=== PATIENT | female | born 1985 | race Caucasian/White ===

== ENCOUNTER 2017-02-27 11:19 | Emergency (ER) | payer BC, MEDICAID, OTHER ==
[~2017-02-27] VITALS: Ht 162.6 cm; Wt 70.6 kg
[2017-02-27 11:33] VITALS: BP 135/88; PULSE 107; RESP 18; TEMP 98.1; O2SAT 100
[2017-02-27] MEDS ORDERED: AMOX500C PO (12:08)
[2017-02-27] MEDS ORDERED: PRED20 PO (12:10)
--- NOTE | 2017-02-27 12:11 | PD ---
HPI Chief Complaint: Cold / Flu Symptoms Time Seen by Provider: 12:10 Travel History International Travel<30 days: No Contact w/Intl Traveler<30days: No Traveled to known affect area: No History of Present Illness HPI 31-year-old female presents to the emergency department for evaluation of postnasal drip, ear pressure, sore throat, cough. Patient states that 3 weeks ago her daughter developed cold symptoms and then passed them to her. States that she initially had ear pressure and pain, sore throat and nasal congestion. States that she started taking amoxicillin that she had at home 500 mg twice daily and her ear pain resolved. States that since then she's had persistent postnasal drip, mild nonproductive cough, chest tightness. Denies any fever, chills, nausea, vomiting, chest pain, shortness of breath, abdominal pain. Denies any medical conditions. States that she has seasonal allergies. Denies any history of lung disease, denies any history of smoking. Denies any recent travel. Denies , last menstrual period 1 week ago. No other complaints. PFSH Past Medical History Medical History: Denies Significant Hx Diminished Hearing: No Immunizations Current: Yes Tetanus Vaccination: > 5 Years Influenza Vaccination: No ?: Not LMP: 02-16-17 : 1 Para: 1 Past Surgical History Other Surgery: Yes (BREAST AUG) Social History Alcohol Use: Yes (RARE) Tobacco Use: No Substance Use: No Allergies-Medications (Allergen,Severity, Reaction): Coded Allergies: No Known Allergies (Verified , 02/27/17) Reported Meds & Prescriptions Reported Meds & Active Scripts Active Prednisone 20 Mg Tab 20 Mg PO BID 5 Days Reported Amoxicillin 500 Mg Cap 500 Mg PO BID Review of Systems Except as stated in HPI: all other systems reviewed are Neg Physical Exam Narrative GENERAL: Well-nourished and well-developed pleasant patient in no acute distress who is nontoxic appearing. SKIN: Warm and dry. HEAD: Normocephalic and atraumatic. No tenderness to palpation of frontal or maxillary sinuses. EYES: No injection, drainage, or hyphema noted. PERRLA. EOMI. ENT: Mild erythema and irritation of bilateral nasal mucosa. No nasal drainage noted. Oropharynx is clear. Tympanic membranes bilaterally with clear serous effusion but no erythema, loss of landmarks, bulging. NECK: Supple and the trachea is midline. No lymphadenopathy is noted throughout the cervical chains. CARDIOVASCULAR: Regular rate and rhythm. RESPIRATORY: Breath sounds are equal bilaterally with no accessory muscle use, wheezing, rhonchi, or crackles. MUSCULOSKELETAL: No obvious deformities, swelling, cyanosis, or ecchymosis is present throughout the upper and lower extremities. Patient has full range of motion without any signs of neurovascular compromise. NEUROLOGICAL: Awake, alert, and oriented. Normal speech and gait. Cranial nerves are grossly intact. Data Data Last Documented VS Vital Signs Date Time Temp Pulse Resp B/P Pulse Ox O2 Delivery O2 Flow Rate FiO2 02/27/17 11:33 98.1 107 18 135/88 100 MDM Medical Decision Making Medical Screen Exam Complete: Yes Emergency Medical Condition: Yes Differential Diagnosis URI versus bronchitis versus seasonal allergies versus rhinitis Narrative Course 31-year-old female presents to the emergency department for evaluation of cough and cold symptoms for 3 weeks. Patient is afebrile, vital signs are stable. Physical examination reveals that she has some irritation to the nasal mucosa, postnasal drip and tympanic membrane effusions bilaterally without infection. She's been taking amoxicillin 500 mg twice daily for the last 5 days and has 2 days left of this medication. I suspect that she has seasonal allergies and may also have a component of a viral upper respiratory infection. I discussed supportive care with the patient. We'll give her a short course of steroids for symptom management. She is advised follow-up with her PCP. Patient verbalizes understanding and agreement with treatment plan. Diagnosis Primary Impression: URI (upper respiratory infection) Qualified Code: J06.9 - Viral upper respiratory tract infection Additional Impression: Seasonal allergies Qualified Code: J30.2 - Seasonal allergic rhinitis, unspecified allergic rhinitis trigger Referrals: Primary Care Physician Patient Instructions: General Instructions Additional Instructions: Take Claritin daily. Use nasal saline rinse. Take medication as prescribed with food and a full glass of water. Follow-up with your Primary Care Physician. Return to the ED for any acute worsening of symptoms. Med/Other Pt SpecificInfo: Prescription(s) given Scripts Prednisone 20 Mg Tab20 Mg PO BID 5 Days Ref 0 Prov:Lawrence Dickson MD 02/27/17 Disposition: 01 DISCHARGE HOME Condition: Stable Tete Ma February 27, 2017 12:11
== END 2017-02-27 12:15 | disposition home or self-care (01) ==
LOC: PHED 11:19 → PHEFT 12:15
DX: J39.8 Other specified diseases of upper respiratory tract (principal); J30.2 Other seasonal allergic rhinitis
CPT/HCPCS: 99283

== ENCOUNTER 2017-05-09 09:25 | Emergency (ER) | payer BC, MEDICAID ==
[~2017-05-09] VITALS: Ht 162.6 cm; Wt 72.7 kg
[~2017-05-09 09:25] MED LIST: AMOX500C PO; PRED20 PO
[2017-05-09 09:27] VITALS: BP 121/90; PULSE 121; RESP 16; TEMP 98.2; O2SAT 99
[2017-05-09] MEDS ORDERED: MONT4CHW4 CHEW (09:39)
--- NOTE | 2017-05-09 09:56 | PD ---
HPI Chief Complaint: Cardiac Complaint Time Seen by Provider: 09:40 Travel History International Travel<30 days: No Contact w/Intl Traveler<30days: No Traveled to known affect area: No History of Present Illness HPI Patient is a 31-year-old female presents emergency department with cough congestion and palpitations. Patient states that she was here a few months ago and was diagnosed with URI and had some mild palpitations at that time. She states that she has followed up with primary care physician but palpitations persist. She also states that her chest just been feeling tight on the right side without radiation. Also some mild shortness of breath. Denies any nausea vomiting. This symptoms been going on for the past few months and a mitten but seemed to be gradually worsening. Patient denies any history of hormonal contraception use, denies any long stasis periods, denies any history of blood clots denies any history of cancer. PFSH Past Medical History Medical History: Denies Significant Hx Diminished Hearing: No Immunizations Current: Yes Tetanus Vaccination: > 5 Years Influenza Vaccination: No ?: Not LMP: 04/14/17 : 1 Para: 1 Past Surgical History Other Surgery: Yes (Breast aug. ) Social History Alcohol Use: Yes (Occ.) Tobacco Use: No Substance Use: No Allergies-Medications (Allergen,Severity, Reaction): Coded Allergies: No Known Allergies (Verified , 05/09/17) Reported Meds & Prescriptions Reported Meds & Active Scripts Active Propranolol (Propranolol HCl) 10 Mg Tab 10 Mg PO Q12HR PRN Reported Montelukast (Montelukast Sodium) 4 Mg Chew 4 Mg CHEW HS Review of Systems Except as stated in HPI: all other systems reviewed are Neg Physical Exam Narrative GENERAL: Well-developed well-nourished, mildly anxious but in no obvious distress. SKIN: Focused skin assessment warm/dry. HEAD: Atraumatic. Normocephalic. EYES: Pupils equal and round. No scleral icterus. No injection or drainage. ENT: No nasal bleeding or discharge. Mucous membranes pink and moist. TMs clear bilaterally, oropharynx clear and moist. NECK: Trachea midline. No JVD. CARDIOVASCULAR: Regular rhythm with tachycardia. No murmur appreciated. 2+ bilateral equal pulses in all 4 extremities. RESPIRATORY: No accessory muscle use. Clear to auscultation. Breath sounds equal bilaterally. GASTROINTESTINAL: Abdomen soft, non-tender, nondistended. Hepatic and splenic margins not palpable. MUSCULOSKELETAL: No obvious deformities. No clubbing. No cyanosis. No edema. NEUROLOGICAL: Awake and alert. No obvious cranial nerve deficits. Motor grossly within normal limits. Normal speech. PSYCHIATRIC: Appropriate mood and affect; insight and judgment normal. Data Data Last Documented VS Vital Signs Date Time Temp Pulse Resp B/P Pulse Ox O2 Delivery O2 Flow Rate FiO2 05/09/17 11:45 75 05/09/17 11:10 18 138/70 98 Room Air 05/09/17 09:27 98.2 Orders Ckmb (Isoenzyme) Profile (05/09/17 09:48) Complete Blood Count With Diff (05/09/17 09:48) Comprehensive Metabolic Panel (05/09/17 09:48) D-Dimer (05/09/17 09:48) Magnesium (Mg) (05/09/17 09:48) Prothrombin Time / Inr (Pt) (05/09/17 09:48) Act Partial Throm Time (Ptt) (05/09/17 09:48) Troponin I (05/09/17 09:48) Ecg Monitoring (05/09/17 09:48) Iv Access Insert/Monitor (05/09/17 09:48) Oximetry (05/09/17 09:48) Oxygen Administration (05/09/17 09:48) Sodium Chloride 0.9% Flush (Ns Flush) (05/09/17 10:00) Thyroid Stimulating Hormone (05/09/17 09:48) Free T3 (05/09/17 09:48) Free Thyroxine (T4) (05/09/17 09:48) Sodium Chlor 0.9% 1000 Ml Inj (Ns 1000 M (05/09/17 10:00) Propranolol (Inderal) (05/09/17 11:30) Chest, Single Ap (05/09/17 ) Electrocardiogram (05/09/17 09:38) Labs Laboratory Tests Test 05/09/17 09:50 White Blood Count 5.8 TH/MM3 Red Blood Count 4.81 MIL/MM3 Hemoglobin 14.4 GM/DL Hematocrit 42.8 % Mean Corpuscular Volume 89.0 FL Mean Corpuscular Hemoglobin 29.9 PG Mean Corpuscular Hemoglobin 33.6 % Concent Red Cell Distribution Width 12.7 % Platelet Count 235 TH/MM3 Mean Platelet Volume 8.3 FL Neutrophils (%) (Auto) 36.6 % Lymphocytes (%) (Auto) 49.3 % Monocytes (%) (Auto) 12.4 % Eosinophils (%) (Auto) 0.8 % Basophils (%) (Auto) 0.9 % Neutrophils # (Auto) 2.1 TH/MM3 Lymphocytes # (Auto) 2.9 TH/MM3 Monocytes # (Auto) 0.7 TH/MM3 Eosinophils # (Auto) 0.0 TH/MM3 Basophils # (Auto) 0.1 TH/MM3 CBC Comment DIFF FINAL Differential Comment Prothrombin Time 10.7 SEC Prothromb Time International 1.0 RATIO Ratio Activated Partial 26.0 SEC Thromboplast Time D-Dimer Quantitative (PE/DVT) 0.37 MG/L FEU Sodium Level 141 MEQ/L Potassium Level 3.5 MEQ/L Chloride Level 108 MEQ/L Carbon Dioxide Level 25.2 MEQ/L Anion Gap 8 MEQ/L Blood Urea Nitrogen 16 MG/DL Creatinine 0.85 MG/DL Estimat Glomerular Filtration 78 ML/MIN Rate Random Glucose 96 MG/DL Calcium Level 9.1 MG/DL Magnesium Level 2.0 MG/DL Total Bilirubin 0.6 MG/DL Aspartate Amino Transf 15 U/L (AST/SGOT) Alanine Aminotransferase 17 U/L (ALT/SGPT) Alkaline Phosphatase 79 U/L Total Creatine Kinase 50 U/L Troponin I LESS THAN 0.02 NG/ML Total Protein 7.7 GM/DL Albumin 3.8 GM/DL Free Thyroxine 1.08 NG/DL Free Triiodothyronine (T3) 3.26 PG/ML pg/dL Thyroid Stimulating Hormone 1.620 uIU/ML [address] [place] [address] Medical Decision Making Medical Screen Exam Complete: Yes Emergency Medical Condition: Yes Interpretation(s) EKG shows sinus tachycardia without any acute ST segment changes. Intervals otherwise within normal limits. Normal axis and normal R-wave progression. This normal EKG except for rate. Differential Diagnosis Palpitations, anxiety, electro-light abnormality, thyroid abnormality, PE seems unlikely, URI. Narrative Course Patient roomed in the emergency department, her PE risk seems low by wells and PERC criteria and a d-dimer is obtained and is negative. Chest x-ray negative, initial EKG negative, troponin negative, electrolytes within normal limits and TSH normal. Patient was given a dose of Inderal her heart rate slowed from 1 teens down to 70s, she states her palpitations had resolved. Unclear etiology I did recommend follow-up with a group home manager she was made for referral. Discussed use of Inderal as needed and return to ED criteria. Low risk for acute coronary syndrome she is stable for discharge. Diagnosis Primary Impression: Palpitations Referrals: Narayan Ureña DO Med/Other Pt SpecificInfo: Prescription(s) given Scripts Propranolol 10 Mg Tab10 Mg PO Q12HR PRN (palpitations) #30 TAB Ref 0 Prov:Tay Hitchcock MD 05/09/17 Disposition: 01 DISCHARGE HOME Condition: Stable Tay Hitchcock MD May 09, 2017 09:56
[2017-05-09 10:00] VITALS: O2SAT 99
[2017-05-09] MEDS ORDERED: SODIUM CHLOR 0.9% 1000 ML INJ 1,000 ML IV ONE (10:00)
[2017-05-09] MEDS ORDERED: SODIUM CHLORIDE 0.9% FLUSH 10 ML FLUSH IVF PRN (10:00)
[2017-05-09 10:04] LABS: AUTOMATED NEUTROPHIL # 2.1 TH/MM3 (1.8-7.7); BASOPHIL # 0.1 TH/MM3 (0-0.2); BASOPHIL % 0.9 % (0.0-2.0); EOSINOPHIL % 0.8 % (0.0-4.0); HEMATOCRIT 42.8 % (35.0-46.0); HEMO FLAGS DIFF FINAL; LYMPH % 49.3 % (9.0-44.0); LYMPHOCYTE # 2.9 TH/MM3 (1.0-4.8); MEAN CORPUSCULAR HEMOGLOBIN 29.9 PG (27.0-34.0); MEAN CORPUSCULAR HGB CONC 33.6 % (32.0-36.0); MONO % 12.4 % (0.0-8.0); NEUT % 36.6 % (16.0-70.0); PLATELET COUNT 235 TH/MM3 (150-450); RED BLOOD COUNT 4.81 MIL/MM3 (4.00-5.30); RED CELL DISTRIBUTION WIDTH 12.7 % (11.6-17.2); WHITE BLOOD COUNT 5.8 TH/MM3 (4.0-11.0)
[2017-05-09 10:13] LABS: CHLORIDE 108 MEQ/L (98-107); POTASSIUM 3.5 MEQ/L (3.5-5.1); SODIUM (NA) 141 MEQ/L (136-145)
[2017-05-09 10:16] LABS: ANION GAP 8 MEQ/L (5-15); BICARBONATE 25.2 MEQ/L (21.0-32.0)
[2017-05-09 10:17] LABS: BLOOD UREA NITROGEN 16 MG/DL (7-18)
[2017-05-09 10:19] LABS: ALT (GPT) 17 U/L (10-53); AST (GOT) 15 U/L (15-37)
[2017-05-09 10:20] LABS: GLOMERULAR FILTRATION RATE 78 ML/MIN (>89)
[2017-05-09 10:21] LABS: TOTAL BILIRUBIN ADULT 0.6 MG/DL (0.2-1.0)
[2017-05-09 10:22] LABS: ALKALINE PHOSPHATASE 79 U/L (45-117)
[2017-05-09 10:25] LABS: PROTHROMBIN TIME - PATIENT 10.7 SEC (9.8-11.6)
[2017-05-09 10:41] LABS: CREATINE KINASE 50 U/L (26-192)
[2017-05-09 11:10] VITALS: BP 138/70; PULSE 110; RESP 18; O2SAT 98
[2017-05-09] MEDS ORDERED: PROPRANOLOL HCL 10 MG TAB PO ONE (11:30)
[2017-05-09 11:35] LABS: FREE T3 3.26 PG/ML (2.18-3.98); FREE T4 1.08 NG/DL (0.76-1.46)
[2017-05-09] MEDS ORDERED: PROP10TA6 PO (11:39)
[2017-05-09 11:45] VITALS: PULSE 75
--- NOTE | 2017-05-09 12:39 | RADRPT ---
EXAM DATE/TIME: 05/09/2017 12:04 [facility] COMPARISON: No previous studies available for comparison. INDICATIONS : Chest tightness and short of breath MEDICAL HISTORY : None. SURGICAL HISTORY : Breast augmentation ENCOUNTER: Initial ACUITY: 3 days PAIN SCORE: 0/10 LOCATION: Bilateral chest FINDINGS: The lungs are clear without infiltrate, nodule, or mass. There is no appreciable pleural effusion fo r technique. Heart and mediastinum are unremarkable. CONCLUSION: No acute cardiopulmonary disease. Christiano Underwood MD on May 09, 2017 at 12:38 Board Certified Radiologist. This report was verified electronically.
--- NOTE | 2017-05-10 10:41 | EKG ---
Date Performed: 05/09/2017 Time Performed: 09:38:50 PTAGE: 31 years EKG: SINUS TACHYCARDIA INCOMPLETE RIGHT BUNDLE BRANCH BLOCK ABNORMAL RHYTHM ECG INTERPRETATION B ASED ON A DEFAULT AGE OF 40 YEARS NO PREVIOUS TRACING DOCTOR: Samy Black Interpretating Date/Time 05/10/2017 10:39:03
== END 2017-05-09 12:25 | disposition home or self-care (01) ==
LOC: PHED 09:25
DX: R00.2 Palpitations (principal); R06.02 Shortness of breath; R07.89 Other chest pain; R00.0 Tachycardia, unspecified; I45.10 Unspecified right bundle-branch block
CPT/HCPCS: 71010; 80053; 82550; 83735; 84439; 84443; 84481; 84484; 85025; 85379; 85610; 85730; 93005; 96360; 99284; J7030